=== PATIENT | female | born 1940 | race Two or more races ===

== ENCOUNTER 2023-08-12 16:14 | Observation (INO) | payer MEDICARE, SELFPAY ==
--- NOTE | 2023-08-12 | ECG_ITS ---
Test Reason : DIZZINESS Blood Pressure : / mmHG Vent. Rate : 069 BPM Atrial Rate : 069 BPM P-R Int : 184 ms QRS Dur : 086 ms QT Int : 392 ms P-R-T Axes : 069 060 060 degrees QTc Int : 420 ms Normal sinus rhythm Normal ECG No previous ECGs available Referred By: Generic ED Physician Electronically Signed By:RAJ MARTIN
--- NOTE | ~2023-08-12 | CT_ITS ---
EXAMINATION: CT ANGIOGRAM HEAD CT ANGIOGRAM NECK CLINICAL INFORMATION: Reason for Exam dizziness COMPARISON: None. TECHNIQUE: Test bolus sequences followed by intravenous administration 85 mL of Omnipaque 300. Helical imaging was performed in the axial plane from the aortic arch to the skull vertex. Delayed postcontrast imaging of the head was also performed. The data was processed at the mri technologist's workstation for generation of MIP sequences. Angled MIPs and volume rendered reformatted images were also generated at an offline 3D workstation. Stenoses are assessed in accordance with Og et al. Quantification of Carotid Stenosis on CT Angiography. AJR 2006. 27(1):13-19. This CT examination was performed using dose optimization techniques as appropriate, variously including the following: *Automated exposure control *Adjustment of mA and/or kV according to patient size (this includes techniques or standardized protocols for targeted exams where dose is matched to indication/reason for exam; i.e. extremities or head) *Use of iterative reconstruction technique DLP: 1899 mGy-cm FINDINGS: CT HEAD: Moderate generalized parenchymal volume loss. No territorial loss of lozano-white differentiation. No acute intracranial hemorrhage or extra-axial fluid collection. No mass lesion, significant mass effect, or herniation pattern. No pathologic intra-axial enhancement or regional oligemia. Lens replacements. Paranasal sinuses and mastoid air cells are well aerated. Osseous structures are intact. Advanced TMJ osteoarthrosis bilaterally. CTA HEAD: No hemodynamically significant stenosis or occlusion in the anterior or posterior circulation. Patchy calcific plaque along the carotid siphons without associated stenosis. There is asymmetric ectasia of the left cavernous ICA. No aneurysms and no high flow vascular malformations. Timing of the contrast bolus allows assessment of the major dural venous sinuses, which all opacify normally CTA NECK: Two vessel branching pattern of the arch with left common carotid artery arising from the brachiocephalic trunk. Moderate partially calcified atherosclerotic plaque of the aortic arch and great vessel origins. Origins of the great vessels are widely patent. The common carotid arteries are widely patent. Mild atherosclerosis of the bilateral carotid bifurcations without associated stenosis. Widely patent internal carotid arteries. The right vertebral artery is dominant. The vertebral artery ostia are widely patent. Both vertebral arteries are widely patent throughout their extracranial cervical course. CT NECK: Patient is edentulous with dentures in place. Segmental fatty infiltration of the left greater than right parotid glands. 2.1 cm lipoma within the posterior left submandibular gland or interposed between the submandibular gland and sternocleidomastoid muscle.. Bilateral calcified palatine tonsilloliths with symmetric enlargement of the palatine tonsils, presumably reactive. Prominent soft tissue along the base of tongue effacing the vallecula may reflect lingual tonsillar hypertrophy though can be correlated with direct inspection to exclude underlying process. Asymmetric effacement of the right piriform sinus. Mosaic attenuation within the bilateral lungs, presumably areas of air trapping. Biapical pleural parenchymal scarring with some areas which appear more masslike with spiculated margins, for example in the left upper lobe measuring measuring 1.3 cm internal cystic change versus bronchiolectasis and adjacent architectural distortion. Diffuse osseous demineralization. CT/CT angio head neck IMPRESSION: 1. No acute intracranial findings. 2. No acute arterial occlusion or hemodynamically significant stenosis within the head or neck. 3. Prominent soft tissue along the base of tongue effacing the vallecula may reflect lingual tonsillar hypertrophy though can be correlated with direct inspection to exclude underlying process. Asymmetric effacement of the right piriform sinus and likewise be correlated with direct inspection to exclude underlying lesion. 4. Biapical pleural parenchymal scarring with some areas which appear more masslike with spiculated margins, for example in the left upper lobe measuring measuring 1.3 cm internal cystic change versus bronchiolectasis and adjacent architectural distortion. Recommend correlation with any prior outside hospital imaging if available. Pulmonary consultation advised. According to the UPDATED 2017 Fleischner Society recommendations, the advised followup imaging for a single solid nodule measuring 9 mm or greater is: Consider CT, PET/CT, or tissue sampling at 3 months. This was discussed with TYE Delacruz on 08/13/23 at 12:07 am.
--- NOTE | ~2023-08-12 | MR_ITS ---
EXAMINATION: MR BRAIN WITHOUT CONTRAST CLINICAL INFORMATION: Hypertensive urgency COMPARISON: None TECHNIQUE: Multiplanar multisequence MR imaging of the brain was obtained without intravenous contrast. FINDINGS: There is no acute infarct on diffusion-weighted imaging. There is no intracranial hemorrhage on iron-sensitive imaging. No extra-axial collection or mass effect/herniation. Patchy periventricular and deep white matter T2 FLAIR hyperintensities consistent with moderate underlying microangiopathy. No hydrocephalus. Mild to moderate generalized cerebral volume loss with commensurate sulcal and ventricular prominence. The major flow voids at the skull base are preserved. The midline structures are normal. The cerebellar tonsils are normally positioned. The craniocervical junction is normal. Marrow signal is within normal limits. The visualized soft tissues are without significant abnormality. No signal abnormality within the paranasal sinuses or within the mastoid air cells. MR/MR head/brain wo con IMPRESSION: No acute intracranial abnormality
[2023-08-12 17:20] VITALS: BP 170/57; PULSE 65; RESP 17; TEMP 36.6; O2SAT 95; BMI 28.2
[2023-08-12 17:52] LABS: MANUAL DIFF FLAG NO
[2023-08-12 18:14] LABS: Alanine Aminotransferase 13 U/L (0-31); Albumin Level 3.8 g/dL (3.5-5.0); Alkaline Phosphatase 56 U/L (39-117); Anion Gap 9 (12-20); Aspartate Amino Transferase 19 U/L (5-31); Bilirubin Direct 0.2 mg/dL (0.0-0.5); Bilirubin Total 0.5 mg/dL (0.0-1.0); Blood Urea Nitrogen 23 mg/dL (9-16); Calcium 9.2 mg/dL (8.4-10.2); Carbon Dioxide 31 mmol/L (22-29); Chloride 100 mmol/L (96-108); Creatinine Clr Calc Pharmacy 29.8; Estimated Glomerular Filt Rate 46; Glucose Random 86 mg/dL (60-115); Lipase 46 U/L (8-78); Potassium 4.4 mmol/L (3.3-5.1); Sodium 136 mmol/L (135-145); Total Protein 7.9 g/dL (6.5-8.0)
[2023-08-12 18:19] LABS: Basophils Absolute Auto 0.1 X10*3/uL (0.0-0.2); Basophils Percent Auto 1.2 % (0-2); Eosinophils Absolute Auto 0.2 X10*3/uL (0.0-0.4); Eosinophils Percent Auto 3.2 % (0-4); Hematocrit 31.7 % (37.0-47.0); Hemoglobin 10.6 g/dl (12.0-16.0); Imm Gran Abs Auto 0.01 X10*3/uL (0.00-0.03); Imm Gran Pct Auto 0.1 % (0.0-0.4); Lymphocytes Absolute Auto 3.4 X10*3/uL (1.2-4.9); Lymphocytes Percent Auto 49.4 % (20-40); Mean Corpuscular HGB Conc 33.4 g/dl (31.0-35.0); Mean Corpuscular Hemoglobin 30.5 pg (27.0-33.0); Mean Corpuscular Volume 91.1 fL (80.0-98.0); Mean Platelet Volume 10.8 fL (9.4-12.3); Monocytes Absolute Auto 0.6 X10*3/uL (0.1-1.2); Neutrophils Absolute Auto 2.5 x10*3/uL (2.0-8.3); Neutrophils Percent Auto 37.1 % (45-73); Platelet Count 219 X10*3/uL (160-400); Red Blood Count 3.48 X10*6/uL (4.20-5.50); Red Cell Distribution Width 13.8 % (11.0-16.0); White Blood Count 6.8 X10*3/uL (4.8-10.8)
--- NOTE | 2023-08-12 20:00 | ED_ITS ---
HPI - Dizziness General Chief Complaint: Dizziness Stated Complaint: vomiting dizziness Time Seen by Provider: 08/12/23 21:34 Source: family Mode of arrival: ambulatory Limitations: language barrier History of Present Illness ED Provider: Jerardo DE LA TORRE Narrative: 83-year-old female with history of hypertension, hyperlipidemia, chronic kidney disease, hypothyroidism presents with dizziness x2 and half days. Per patient's family, the patient just arrived from [place], she is here visiting family on vacation. Since she arrived off the plane, she began to complain of dizziness and gait instability. Associated nausea vomiting at times. Patient also complains of a posterior headache. Denies chest pain, shortness of breath, palpitations, visual changes, weakness of the extremities, and no prior vertigo. Related Data Allergies Allergy/AdvReac Type Severity Reaction Status Date / Time No Known Allergies Allergy Verified 08/12/23 17:24 Review of Systems 2 Review of Systems: Yes all other systems are reviewed and are negative Constitutional: Constitutional: Denies fatigue, Denies fever(s), Denies frequent falls and Reports headache(s) Eyes: Eyes: Denies change in vision ENT: Reports dizziness and Reports headache(s) Cardiovascular: Cardiovascular: Denies chest pain, Denies syncope, Denies palpitations and Denies dyspnea Respiratory: Respiratory: Denies dyspnea Gastrointestinal: Gastrointestinal: Denies abdominal pain, Reports nausea and Reports vomiting Musculoskeletal: Musculoskeletal: Reports abnormal gait Neurologic: Reports abnormal gait, Reports dizziness, Denies syncope, Denies frequent falls and Reports headache(s) Endocrine: Endocrine: Denies fatigue and Denies palpitations PMF Past Medical History Attestation statement: The following information was validated with the patient. Social History Social History Advance Directives: No Advance Directives Information Provided: No Do you have a plan to hurt others: No Plan Physical Exam 2 Vital Signs: Vital Signs: Last Vital Signs Temp 97.7 F 08/13/23 00:45 Pulse 65 08/13/23 00:45 Resp 16 08/13/23 00:45 BP 144/80 H 08/13/23 00:45 Pulse Ox 93 08/13/23 00:45 O2 Del Method Room Air 08/13/23 00:45 BMI result Body Mass Index 28.2 Const: Other: alert well in appearance General: cooperative Eyes: Pupils: Equal, round and reactive pupils present EOM: EOMs intact bilaterally and No Nystagmus present Resp: Other: Nonlabored respiration Cardio: Other: Normal peripheral perfusion Skin: Other: No rash Neuro: Other: Patient is alert and oriented x3, no speech deficits, she has not aphasic, cranial nerves intact, Romberg negative, subtly unsteady on her feet with position changes while standing, no primary unilateral ataxia Cranial nerves: Yes Equal, round and reactive pupils present and No Nystagmus present Extrem: Other: Strength 5/5 bilateral upper and lower extremities Psych: Other: Calm cooperative Course Course Course Narrative: This is an RME: Additional HPI, ROS, PE not included below will be deferred to primary provider. RME assessment and note performed by: Ludmila Norton PA-C This is a [id number]-female who presents emergency department with complaints of vomiting, dizziness. Patient is unable to keep any food or fluids down. She is originally from [facility]. Plan: Labs, EKG, further ER evaluation needed Reevaluation(s) Reevaluation #1: Systolic BP 1 70s after 20 mg of labetalol, we will give an additional dose now Reevaluation #2: Pressure is 160 systolic after the 2nd 20 mg of IV labetalol, I do not want to bring her pressure down to rapidly, unclear what her baseline is Medications Administered Discontinued Medications Generic Name Dose Route Start Last Admin Trade Name Freq PRN Reason Stop Dose Admin Iohexol 85 ml 08/12/23 22:49 08/12/23 22:50 Iohexol 350 Mg/Ml 100 Ml Infus..Btl IV 08/12/23 22:50 85 ml ONCE ONE Administration Labetalol HCl 20 mg 08/12/23 22:12 08/12/23 22:20 Labetalol Hcl 100 Mg/20 Ml Vial IVPUSH 08/12/23 22:13 20 mg ONCE ONE Administration Labetalol HCl 20 mg 08/12/23 23:19 08/12/23 23:31 Labetalol Hcl 100 Mg/20 Ml Vial IVPUSH 08/12/23 23:20 20 mg ONCE ONE Administration Medical Decision Making Medical Decision Making [facility] Narrative: 83-year-old female with history of hypertension, hyperlipidemia, chronic kidney disease, hypothyroidism presents with dizziness x2 and half days. Per patient's family, the patient just arrived from [place], she is here visiting family on vacation. Since she arrived off the plane, she began to complain of dizziness and gait instability. Associated nausea vomiting at times. Patient also complains of a posterior headache. Denies chest pain, shortness of breath, palpitations, visual changes, weakness of the extremities, and no prior vertigo. Problem: Hypertension, age, chronic kidney disease, hyperlipidemia History: Per patient with the aid of her family, I have considered the following differential diagnoses: Hypertensive urgency, hypertensive emergency, posterior circulation CVA, intracranial hemorrhage, vertigo Plan: Patient here with poorly-controlled hypertension, the family states that she has been adherent with her medications. We will be initiating IV labetalol. Given the nature of her symptoms, I am concerned for posterior circulation CVA. Her current symptoms are minimal, she has also had symptoms for over 2 days, we will be placing orders for subacute stroke. Screening labs and EKG including cardiac enzymes were obtained from triage. Thought about vertigo, however her symptoms are not vertiginous in nature, no nystagmus noted on exam. I have independently reviewed the following tests: Labs: No leukocytosis, chronic stable anemia, no electrolyte abnormality, troponin 5 and 4.7 respectively, EKG: Normal sinus rhythm, rate of 69, no ischemic changes no ectopy CT non-con brain: Per [facility], no active bleeding CT angio brain and angio neck: EXAMINATION: CT ANGIOGRAM HEAD CT ANGIOGRAM NECK CLINICAL INFORMATION: Reason for Exam dizziness COMPARISON: None. TECHNIQUE: Test bolus sequences followed by intravenous administration 85 mL of Omnipaque 300. Helical imaging was performed in the axial plane from the aortic arch to the skull vertex. Delayed postcontrast imaging of the head was also performed. The data was processed at the health information technologist's workstation for generation of MIP sequences. Angled MIPs and volume rendered reformatted images were also generated at an offline 3D workstation. Stenoses are assessed in accordance with Og et al. Quantification of Carotid Stenosis on CT Angiography. AJR 2006. 27(1):13-19. This CT examination was performed using dose optimization techniques as appropriate, variously including the following: *Automated exposure control *Adjustment of mA and/or kV according to patient size (this includes techniques or standardized protocols for targeted exams where dose is matched to indication/reason for exam; i.e. extremities or head) *Use of iterative reconstruction technique DLP: 1899 mGy-cm FINDINGS: CT HEAD: Moderate generalized parenchymal volume loss. No territorial loss of lozano-white differentiation. No acute intracranial hemorrhage or extra-axial fluid collection. No mass lesion, significant mass effect, or herniation pattern. No pathologic intra-axial enhancement or regional oligemia. Lens replacements. Paranasal sinuses and mastoid air cells are well aerated. Osseous structures are intact. Advanced TMJ osteoarthrosis bilaterally. CTA HEAD: No hemodynamically significant stenosis or occlusion in the anterior or posterior circulation. Patchy calcific plaque along the carotid siphons without associated stenosis. There is asymmetric ectasia of the left cavernous ICA. No aneurysms and no high flow vascular malformations. Timing of the contrast bolus allows assessment of the major dural venous sinuses, which all opacify normally CTA NECK: Two vessel branching pattern of the arch with left common carotid artery arising from the brachiocephalic trunk. Moderate partially calcified atherosclerotic plaque of the aortic arch and great vessel origins. Origins of the great vessels are widely patent. The common carotid arteries are widely patent. Mild atherosclerosis of the bilateral carotid bifurcations without associated stenosis. Widely patent internal carotid arteries. The right vertebral artery is dominant. The vertebral artery ostia are widely patent. Both vertebral arteries are widely patent throughout their extracranial cervical course. CT NECK: Patient is edentulous with dentures in place. Segmental fatty infiltration of the left greater than right parotid glands. 2.1 cm lipoma within the posterior left submandibular gland or interposed between the submandibular gland and sternocleidomastoid muscle.. Bilateral calcified palatine tonsilloliths with symmetric enlargement of the palatine tonsils, presumably reactive. Prominent soft tissue along the base of tongue effacing the vallecula may reflect lingual tonsillar hypertrophy though can be correlated with direct inspection to exclude underlying process. Asymmetric effacement of the right piriform sinus. Mosaic attenuation within the bilateral lungs, presumably areas of air trapping. Biapical pleural parenchymal scarring with some areas which appear more masslike with spiculated margins, for example in the left upper lobe measuring measuring 1.3 cm internal cystic change versus bronchiolectasis and adjacent architectural distortion. Diffuse osseous demineralization. CT/CT angio head neck IMPRESSION: 1. No acute intracranial findings. 2. No acute arterial occlusion or hemodynamically significant stenosis within the head or neck. 3. Prominent soft tissue along the base of tongue effacing the vallecula may reflect lingual tonsillar hypertrophy though can be correlated with direct inspection to exclude underlying process. Asymmetric effacement of the right piriform sinus and likewise be correlated with direct inspection to exclude underlying lesion. 4. Biapical pleural parenchymal scarring with some areas which appear more masslike with spiculated margins, for example in the left upper lobe measuring measuring 1.3 cm internal cystic change versus bronchiolectasis and adjacent architectural distortion. Recommend correlation with any prior outside hospital imaging if available. Pulmonary consultation advised. According to the UPDATED 2017 Fleischner Society recommendations, the advised followup imaging for a single solid nodule measuring 9 mm or greater is: Consider CT, PET/CT, or tissue sampling at 3 months. This was discussed with TYE Delacruz on 08/13/23 at 12:07 am. Differential Diagnosis Differential Diagnoses: The differential diagnosis associated with the presentation includes Hypertensive urgency, hypertensive emergency, posterior circulation CVA, intracranial hemorrhage, vertigo Lab Data 08/12/23 17:47 08/12/23 17:47 Labs: Lab Results 08/12/23 08/12/23 08/12/23 Range/Units 17:47 21:22 22:16 WBC 6.8 (4.8-10.8) X10*3/uL RBC 3.48 L (4.20-5.50) X10*6/uL Hgb 10.6 L (12.0-16.0) g/dl Hct 31.7 L (37.0-47.0) % MCV 91.1 (80.0-98.0) fL MCH 30.5 (27.0-33.0) pg MCHC 33.4 (31.0-35.0) g/dl RDW 13.8 (11.0-16.0) % Plt Count 219 (160-400) X10*3/uL MPV 10.8 (9.4-12.3) fL Immature Gran % (Auto) 0.1 (0.0-0.4) % Neut % (Auto) 37.1 L (45-73) % Lymph % (Auto) 49.4 H (20-40) % Falls % (Auto) 9.0 (2-11) % Eos % (Auto) 3.2 (0-4) % Baso % (Auto) 1.2 (0-2) % Lymph # (Auto) 3.4 (1.2-4.9) X10*3/uL Falls # (Auto) 0.6 (0.1-1.2) X10*3/uL Eos # (Auto) 0.2 (0.0-0.4) X10*3/uL Baso # (Auto) 0.1 (0.0-0.2) X10*3/uL Abs Immat Gran (auto) 0.01 (0.00-0.03) X10*3/uL Absolute Neuts (auto) 2.5 (2.0-8.3) x10*3/uL Absolute Nucleated RBC 0.000 (0.0-0.012) X10*3/uL Nucleated RBC % (auto) 0.0 (0.0-0.2) /100WBC PT 12.3 (11.1-13.3) SEC INR 1.0 (0.9-1.1) Sodium 136 (135-145) mmol/L Potassium 4.4 (3.3-5.1) mmol/L Chloride 100 (96-108) mmol/L Carbon Dioxide 31 H (22-29) mmol/L Anion Gap 9 L (12-20) BUN 23 H (9-16) mg/dL Creatinine 1.13 (0.5-1.4) mg/dL Estim Creat Clear Calc 29.8 Estimated GFR 46 Random Glucose 86 (60-115) mg/dL Calcium 9.2 (8.4-10.2) mg/dL Total Bilirubin 0.5 (0.0-1.0) mg/dL Direct Bilirubin 0.2 (0.0-0.5) mg/dL AST 19 (5-31) U/L ALT 13 (0-31) U/L Alkaline Phosphatase 56 (39-117) U/L Troponin I High Sens 5.0 4.7 (<3.5-17.0) ng/L Total Protein 7.9 (6.5-8.0) g/dL Albumin 3.8 (3.5-5.0) g/dL Lipase 46 (8-78) U/L Blood Type Antibody Screen 08/12/23 Range/Units 22:28 WBC (4.8-10.8) X10*3/uL RBC (4.20-5.50) X10*6/uL Hgb (12.0-16.0) g/dl Hct (37.0-47.0) % MCV (80.0-98.0) fL MCH (27.0-33.0) pg MCHC (31.0-35.0) g/dl RDW (11.0-16.0) % Plt Count (160-400) X10*3/uL MPV (9.4-12.3) fL Immature Gran % (Auto) (0.0-0.4) % Neut % (Auto) (45-73) % Lymph % (Auto) (20-40) % Falls % (Auto) (2-11) % Eos % (Auto) (0-4) % Baso % (Auto) (0-2) % Lymph # (Auto) (1.2-4.9) X10*3/uL Falls # (Auto) (0.1-1.2) X10*3/uL Eos # (Auto) (0.0-0.4) X10*3/uL Baso # (Auto) (0.0-0.2) X10*3/uL Abs Immat Gran (auto) (0.00-0.03) X10*3/uL Absolute Neuts (auto) (2.0-8.3) x10*3/uL Absolute Nucleated RBC (0.0-0.012) X10*3/uL Nucleated RBC % (auto) (0.0-0.2) /100WBC PT (11.1-13.3) SEC INR (0.9-1.1) Sodium (135-145) mmol/L Potassium (3.3-5.1) mmol/L Chloride (96-108) mmol/L Carbon Dioxide (22-29) mmol/L Anion Gap (12-20) BUN (9-16) mg/dL Creatinine (0.5-1.4) mg/dL Estim Creat Clear Calc Estimated GFR Random Glucose (60-115) mg/dL Calcium (8.4-10.2) mg/dL Total Bilirubin (0.0-1.0) mg/dL Direct Bilirubin (0.0-0.5) mg/dL AST (5-31) U/L ALT (0-31) U/L Alkaline Phosphatase (39-117) U/L Troponin I High Sens (<3.5-17.0) ng/L Total Protein (6.5-8.0) g/dL Albumin (3.5-5.0) g/dL Lipase (8-78) U/L Blood Type A Negative Antibody Screen NEGATIVE Discharge Plan Discharge Print Language: Cameroonian
[2023-08-12 21:26] VITALS: BP 209/101; PULSE 69; RESP 16; TEMP 36.6; O2SAT 96
[2023-08-12 21:55] LABS: Troponin-I High Sensitivity 4.7 ng/L (<3.5-17.0)
[2023-08-12 22:06] VITALS: BP 208/127; PULSE 72; RESP 17; O2SAT 95
[2023-08-12 22:20] VITALS: BP 207/91
[2023-08-12] MEDS: Labetalol HCL 100 MG/20 ML VIAL 20 MG IVPUSH ×2 (22:20→23:31)
[2023-08-12 22:25] LABS: Prothrombin Time 12.3 SEC (11.1-13.3)
[2023-08-12] MEDS: iohexoL 350 MG/ML 100 ML INFUS..BTL 85 ML IV (22:50)
[2023-08-12 23:09] VITALS: BP 185/74; PULSE 70; RESP 16; O2SAT 93
[2023-08-13] VITALS (14 sets, daily range): BP systolic 118–200; BP diastolic 48–90; PULSE 64–86; RESP 14–19; TEMP 36.3–37; O2SAT 90–94
--- NOTE | 2023-08-13 06:32 | P.HPHOSP_ITS ---
History of Present Illness Date of Service: 08/13/23 Attending physician on admission: Stan Selby Chief Complaint: Dizziness Haven Chaidez is 83 years old woman with past medical history significant for essential hypertension, hyperlipidemia, depression, CKD stage 3A, COPD, chronic anemia on erythropoietin injections and hypothyroidism presents to the emergency department complaining of 2 day history of dizziness (vertigo-like) associated with multiple episodes of nonbloody bilious vomiting and loss of balance. Dizziness occurs with position changes. She denied any associated headache, acute visual disturbances such as double vision or blurry vision, focal weakness or speech difficulty. Loss of consciousness or seizure activity has not been reported. Patient denied any acute cardiopulmonary symptoms such as chest pain, shortness on breath, palpitations or dizziness. She also denies abdominal pain, diarrhea, fever, chills or cough. She did not report any acute urinary symptoms. Patient is visiting her family from [facility]. She denied alcohol abuse. She is a former tobacco smoker -smoked for many years. Illicit drug use was not reported. She does not have history of strokes, coronary artery disease, diabetes mellitus or heart failure. In the ED, she was found have back elevated blood pressure (max 208/127). There is no tachycardia, hypoxia or fever. Blood workup is remarkable for mild degree of anemia (Hbg 10.6) which is around her baseline. WBC count, platelets INR and normal. CO2 was noted to be elevated, 31. Creatinine is 1.13 (her baseline is 1.4, according to her paperwork). LFTs, albumin and lipase are normal. Troponin is flat x2. His CTA showed no acute intracranial abnormalities, no acute arterial occlusion or hemodynamically significant stenosis within the head or neck, possible lingual tonsillar hypertrophy and biapical pleural-parenchymal scarring with some areas which appear more masslike with spiculated margins. ECG showed normal sinus rhythm with a heart rate of 69 beats per minute without ischemic changes. ED tx: Labetalol 20 mg IV X2, IV contrast. Review of Systems 2 Review of Systems: All 12 systems were reviewed and normal except as noted in HPI. [facility] Medical History (Updated 08/13/23 @ 07:41 by Stan Selby MD) Vitamin B12 deficiency Chronic anemia CKD (chronic kidney disease), stage III GERD (gastroesophageal reflux disease) COPD (chronic obstructive pulmonary disease) Essential hypertension Hyperlipidemia Social History Smoked in Last 30 Days: No Use of substances other than those prescribed or required for medical reasons: No Advance Directives: No Advance Directives Information Provided: No Do you have a plan to hurt others: No Plan Meds Allergies Allergy/AdvReac Type Severity Reaction Status Date / Time No Known Allergies Allergy Verified 08/12/23 17:24 Active Medications: Current Medications Meclizine HCl (Meclizine Hcl 12.5 Mg Tablet) 12.5 mg PO TID [facility] Sodium Chloride (0.9 % Sodium Chloride Flush 3 Ml Syringe) 3 ml IVFLUSH QSHIFT [facility] Home Medications: 1. Levothyroxine 25 mcg PO daily 2. Lansoprazole 50 mg PO daily 3. Erythropoietin 2000 units inj. every 8 days (last dose was 3 weeks ago) 4. Atorvastatin 10 mg PO daily 5. Escitalopram 10 mg PO daily 6. Aspirin 100 mg PO daily 7. Maalox PO as needed 8. Vitamin B12 injections every month 9. Carvedilol 25 mg PO bid. 10. Nifedipine 30 mg POdaily 11. Losartan/HCTZ 50/12.5 mg PO daily Physical Exam 2 Vital Signs and Narrative: Vital Signs: Last Vital Signs Temp 98.4 F 08/13/23 05:39 Pulse 74 08/13/23 05:39 Resp 14 08/13/23 05:39 BP 118/48 L 08/13/23 05:39 Pulse Ox 92 08/13/23 05:39 O2 Del Method Room Air 08/13/23 05:39 BMI result Body Mass Index 28.2 Constitutional - Awake and Alert, No apparent distress. Pleasant. Cooperative. HEENT - Atraumatic head. Normocephalic. PERRLA, EOMI. Cardiovascular - S1S2, RRR, No edema Respiratory - Normal lung expansion, Normal respiratory effort, No respiratory distress, CTA bilaterally Gastrointestinal - NT / ND; +BS; No rebound or guarding Extremities - N calf tenderness bilaterally, no swelling Musculoskeletal - Normal inspection, normal ROM Skin - Warm/Dry Neurological - Alert & oriented x3, CN III-XII in tact, 5/5 strength BUE and BLE. Nystagmus absent Psychological - Appropriate affect Results Labs 08/12/23 17:47 08/12/23 17:47 Labs: Laboratory Results - last 24 hr 08/12/23 08/12/23 08/12/23 17:47 21:22 22:16 MCV 91.1 MCH 30.5 MCHC 33.4 RDW 13.8 Plt Count 219 MPV 10.8 Immature Gran % (Auto) 0.1 Neut % (Auto) 37.1 L Lymph % (Auto) 49.4 H [place] % (Auto) 9.0 Eos % (Auto) 3.2 Baso % (Auto) 1.2 Lymph # (Auto) 3.4 [place] # (Auto) 0.6 Eos # (Auto) 0.2 Baso # (Auto) 0.1 Abs Immat Gran (auto) 0.01 Absolute Neuts (auto) 2.5 Absolute Nucleated RBC 0.000 Nucleated RBC % (auto) 0.0 PT 12.3 INR 1.0 Anion Gap 9 L Estim Creat Clear Calc 29.8 Estimated GFR 46 Random Glucose 86 Calcium 9.2 Total Bilirubin 0.5 Direct Bilirubin 0.2 AST 19 ALT 13 Alkaline Phosphatase 56 Troponin I High Sens 5.0 4.7 Total Protein 7.9 Albumin 3.8 Lipase 46 Blood Type Antibody Screen 08/12/23 22:28 MCV MCH MCHC RDW Plt Count MPV Immature Gran % (Auto) Neut % (Auto) Lymph % (Auto) [place] % (Auto) Eos % (Auto) Baso % (Auto) Lymph # (Auto) [place] # (Auto) Eos # (Auto) Baso # (Auto) Abs Immat Gran (auto) Absolute Neuts (auto) Absolute Nucleated RBC Nucleated RBC % (auto) PT INR Anion Gap Estim Creat Clear Calc Estimated GFR Random Glucose Calcium Total Bilirubin Direct Bilirubin AST ALT Alkaline Phosphatase Troponin I High Sens Total Protein Albumin Lipase Blood Type A Negative Antibody Screen NEGATIVE ECG Attestation: I personally reviewed and interpreted this ECG as follows: (NSR, HR 69 bpm, no acute ischemic changes.) ECG interpretation date: 08/12/23 Imaging Radiologist's Impressions: Impressions Head/Neck CTA 08/12/23 23:21 IMPRESSION: 1. No acute intracranial findings. 2. No acute arterial occlusion or hemodynamically significant stenosis within the head or neck. 3. Prominent soft tissue along the base of tongue effacing the vallecula may reflect lingual tonsillar hypertrophy though can be correlated with direct inspection to exclude underlying process. Asymmetric effacement of the right piriform sinus and likewise be correlated with direct inspection to exclude underlying lesion. 4. Biapical pleural parenchymal scarring with some areas which appear more masslike with spiculated margins, for example in the left upper lobe measuring measuring 1.3 cm internal cystic change versus bronchiolectasis and adjacent architectural distortion. Recommend correlation with any prior outside hospital imaging if available. Pulmonary consultation advised. According to the UPDATED 2017 Fleischner Society recommendations, the advised followup imaging for a single solid nodule measuring 9 mm or greater is: Consider CT, PET/CT, or tissue sampling at 3 months. This was discussed with TYE Delacruz on 08/13/23 at 12:07 am. Assessment and Plan (1) Hypertensive urgency: Status: Acute (2) Dizziness: Status: Acute (3) Hyperlipidemia: Qualifiers: Hyperlipidemia type: unspecified Qualified Code(s): E78.5 - Hyperlipidemia, unspecified Status: Acute (4) Abnormal CT of the head: Status: Acute (5) Gait instability: Status: Acute Plan Haven Chaidez is 83 y/o woman admitted with: * Hypertensive urgency. Labetalol 20 mg IV X2 given in ED. Observation. Close BP monitoring. Careful reduction in blood pressure to avoid ischemic compliations. Hold home meds (she takes carvedilol, losartan/HCTZ and nifedipine). * Dizziness, vertigo-like with position changes associated with nausea and vomiting . Likely BPPV vs findings due to intracranial pressure. Start therapy with Antivert. Brain MRI. * Elevated CO2, possible contraction alkalosis due to nausea and vomiting. Check venous pH and pCO2. * Biapical pleural parenchymal scarring (masslike), incidental findings on head and neck CTA. Patient would need follow as an outpatient. * Hyperlipidemia. Continue atorvastatin * CKD, stage 3A. Stop hydrochlorothiazide (pt takes a combination losartan and hydrochlorothiazide). Continue to monitor renal function. Avoid nephrotoxic agents. * Hypothyroidism. Continue levothyroxine. * GERD. Continue PPI. * Depression. Continue citalopram. * Chronic anemia. Pt receives erythropoietin (2,000 units) injections every 8 days (last dose was 3 weeks ago). Niece is requesting patient gets a dose of this today, however, patient's Hgb is 10.6. * Vitamin B12 deficiency. On vitamin B12 injections monthly. * COPD, no home oxygen. Asymptomatic. Quality Stroke Does the patient have a stroke diagnosis?: No VTE Prior VTE?: No VTE Risk Level:: Medical - moderate - high VTE Device Contraindication: N/A - Device Ordered VTE Drug Contraindication: N/A - Med Ordered
[2023-08-13] MEDS: 0.9 % Sodium Chloride 500 ML IV (06:58)
[2023-08-13] MEDS: 0.9 % Sodium Chloride 1,000 ML 75 ML IVCONT (08:17)
--- NOTE | 2023-08-13 09:14 | PC.NURSE ---
patient resting quietly in bed, family at bedside. patient alert and oriented x3. patient ambulated to bathroom this morning. medicated per APR, patient has NS running 75 ml/hr. respirations equal and unlabored, VSS
--- NOTE | 2023-08-13 09:40 | PHA.MEDREC ---
Pharmacy Consult ? Medication Reconciliation Pharmacy has completed the medication reconciliation. Patient gets meds filled in [place]. Went to talk to her with an dope edger and patient has family at bedside and they had a list from her pharmacist. She is on an erythropoietin injection once every 8 days. According to family she has not gotten a dose since 07/14/2023 due to it staying in [place] when she came here to visit family but they would like to get it continued for her up here. The patient is also on a Vitamin B-12 once a month, family said she gets it injected into her arm and she got her last injection of that on 08/06/2023. Patient also taking Aspirin 100mg on Tuesdays, and Saturdays; we do not carry that dose here in the hospital, we let patient family know and they said its ok to do low dose for now.
[2023-08-13 09:47] LABS: VBG Base Excess 6.1 mmol/L; VBG HCO3 30 mmol/L (22-26); VBG pCO2 40 mmHg; VBG pH 7.47 (7.32-7.43); VBG pO2 147 mmHg
[2023-08-13 09:51] LABS: Venous Blood Gas Refer to POC result
--- NOTE | 2023-08-13 10:36 | HO.PM.IMPN ---
Subjective Subjective Date of Service: 08/13/23 Interval History: f/u on dizziness, accelerated HTN BP is better, and dizziness is gone she is visiting family from [place] Physical Exam Vital Signs: Vital Signs: Last Vital Signs Temp 98.6 F 08/13/23 07:16 Pulse 64 08/13/23 10:03 Resp 16 08/13/23 07:16 BP 151/61 H 08/13/23 10:03 Pulse Ox 94 08/13/23 10:03 O2 Del Method Room Air 08/13/23 07:16 BMI result Body Mass Index 28.2 General: AO X 3, no acute distress Resp: CTA bilateral CVS: S1,S2,RRR GI: +BS, NT, no distention Skin: No rash Neuro: motor grossly intact Psych: appropriate affect Objective Data Active Medications Aspirin (Aspirin Enteric Coated 81 Mg Tablet.) 81 mg PO TuThSa@0900 [facility] Atorvastatin Calcium (Atorvastatin Calcium 10 Mg Tablet) 10 mg PO BEDTIME [facility] Carvedilol (Carvedilol 12.5 Mg Tablet) 12.5 mg PO BID [facility]; Protocol Cyanocobalamin (Cyanocobalamin (Vitamin B-12) 1,000 Mcg/Ml Vial) 1,000 mcg IM Q30D [facility] Escitalopram Oxalate (Escitalopram Oxalate 10 Mg Tablet) 10 mg PO DAILY [facility] Hydrochlorothiazide (Hydrochlorothiazide 12.5 Mg Tablet) 12.5 mg PO DAILY@0800 [facility] Sodium Chloride (Ns) 1,000 mls @ 75 mls/hr IVCONT .[id number] [facility] Last Admin: 08/13/23 08:17 Dose: 75 mls/hr Documented By: CORY Levothyroxine Sodium (Levothyroxine Sodium 25 Mcg Tablet) 25 mcg PO DAILY@0600 [facility] Losartan Potassium (Losartan Potassium 50 Mg Tablet) 50 mg PO DAILY@0800 [facility]; Protocol Meclizine HCl (Meclizine Hcl 12.5 Mg Tablet) 12.5 mg PO TID [facility] Nifedipine (Nifedipine Er 30 Mg Tab.Er.24) 30 mg PO BEDTIME [facility]; Protocol Omeprazole (Omeprazole 20 Mg Capsule.) 20 mg PO DAILY@0630 [facility] Sodium Chloride (0.9 % Sodium Chloride Flush 3 Ml Syringe) 3 ml IVFLUSH QSHIFT [facility] Last Admin: 08/13/23 08:18 Dose: Not Given Documented By: CORY Non-Admin Reason: IV Running Labs 08/12/23 17:47 08/12/23 17:47 Labs: Laboratory Results - last 24 hr 08/12/23 08/12/23 08/12/23 17:47 21:22 22:16 MCV 91.1 MCH 30.5 MCHC 33.4 RDW 13.8 Plt Count 219 MPV 10.8 Immature Gran % (Auto) 0.1 Neut % (Auto) 37.1 L Lymph % (Auto) 49.4 H [place] % (Auto) 9.0 Eos % (Auto) 3.2 Baso % (Auto) 1.2 Lymph # (Auto) 3.4 [place] # (Auto) 0.6 Eos # (Auto) 0.2 Baso # (Auto) 0.1 Abs Immat Gran (auto) 0.01 Absolute Neuts (auto) 2.5 Absolute Nucleated RBC 0.000 Nucleated RBC % (auto) 0.0 PT 12.3 INR 1.0 VBG pH VBG pCO2 VBG pO2 VBG HCO3 VBG O2 Saturation VBG Base Excess Anion Gap 9 L Estim Creat Clear Calc 29.8 Estimated GFR 46 Random Glucose 86 Calcium 9.2 Total Bilirubin 0.5 Direct Bilirubin 0.2 AST 19 ALT 13 Alkaline Phosphatase 56 Troponin I High Sens 5.0 4.7 Total Protein 7.9 Albumin 3.8 Lipase 46 Blood Type Antibody Screen 08/12/23 08/13/23 22:28 09:39 MCV MCH MCHC RDW Plt Count MPV Immature Gran % (Auto) Neut % (Auto) Lymph % (Auto) [place] % (Auto) Eos % (Auto) Baso % (Auto) Lymph # (Auto) [place] # (Auto) Eos # (Auto) Baso # (Auto) Abs Immat Gran (auto) Absolute Neuts (auto) Absolute Nucleated RBC Nucleated RBC % (auto) PT INR VBG pH 7.47 H VBG pCO2 40 VBG pO2 147 VBG HCO3 30 H VBG O2 Saturation 99.0 VBG Base Excess 6.1 Anion Gap Estim Creat Clear Calc Estimated GFR Random Glucose Calcium Total Bilirubin Direct Bilirubin AST ALT Alkaline Phosphatase Troponin I High Sens Total Protein Albumin Lipase Blood Type A Negative Antibody Screen NEGATIVE Assessment and Plan (1) Hyperlipidemia: Status: Acute (2) Dizziness: Status: Acute Plan Haven Chaidez is 83 y/o woman admitted with: Hypertensive urgency. Labetalol 20 mg IV X2 given in ED with improvement. restart home meds, change Coreg 25 at hs to 12.5 bid, continu Losartan/HCTZ, Nifedipine Dizziness, suspect positional vertigo, meclizine PRN, MRI, Neuro consult Elevated CO2, possible contraction alkalosis due to nausea and vomiting. Monitor Biapical pleural parenchymal scarring (masslike), incidental findings on head and neck CTA. Patient would need follow as an outpatient. Hyperlipidemia. Continue atorvastatin CKD, stage 3A. appear stable, Hypothyroidism. Continue levothyroxine. GERD. Continue PPI. Depression. Continue citalopram. Chronic anemia. Pt receives erythropoietin (2,000 units) injections every 8 days (last dose was 3 weeks ago). Niece is requesting patient gets a dose of this today, however, patient's Hgb is 10.6. Vitamin B12 deficiency. On vitamin B12 injections monthly. COPD, no home oxygen. Asymptomatic. DVT prophylasix heparin Quality Stroke Does the patient have a stroke diagnosis?: No VTE Prior VTE?: No VTE Risk Level:: Medical - moderate - high VTE Device Contraindication: N/A - Device Ordered VTE Drug Contraindication: N/A - Med Ordered
[2023-08-13] MEDS: Levothyroxine Sodium 25 MCG TABLET PO (10:54)
[2023-08-13] MEDS: Losartan Potassium 50 MG TABLET PO (10:55)
[2023-08-13] MEDS: Escitalopram Oxalate 10 MG TABLET PO (10:55)
--- NOTE | 2023-08-13 11:48 | PM.NEUROCN ---
History of Present Illness Data of Consult Service Date: 08/13/23 Primary Care Provider: Unknown Physician HPI Reason for consult: Dizziness 83 years old woman came to hospital with an episode of dizziness. She has been having such episodes for few months. She had sense of spinning with some nausea and unsteadiness. She was not febrile and did not have any headache confusion or any focal numbness or weakness or double vision. Now she was feeling better. Blood pressure in emergency room was high. Review of Systems Review of Systems: No recent cold or flu-like illness PMFSH Past Medical History Medical History Vitamin B12 deficiency Chronic anemia CKD (chronic kidney disease), stage III GERD (gastroesophageal reflux disease) COPD (chronic obstructive pulmonary disease) Essential hypertension Hyperlipidemia Social History Social History Smoked in Last 30 Days: No Use of substances other than those prescribed or required for medical reasons: No Advance Directives: No Advance Directives Information Provided: No Do you have a plan to hurt others: No Plan Meds Allergies Allergy/AdvReac Type Severity Reaction Status Date / Time No Known Allergies Allergy Verified 08/12/23 17:24 Active Medications: Current Medications Aspirin (Aspirin Enteric Coated 81 Mg Tablet.) 81 mg PO TuThSa@0900 [facility] Atorvastatin Calcium (Atorvastatin Calcium 10 Mg Tablet) 10 mg PO BEDTIME [facility] Carvedilol (Carvedilol 12.5 Mg Tablet) 12.5 mg PO BID [facility]; Protocol Cyanocobalamin (Cyanocobalamin (Vitamin B-12) 1,000 Mcg/Ml Vial) 1,000 mcg IM Q30D [facility] Escitalopram Oxalate (Escitalopram Oxalate 10 Mg Tablet) 10 mg PO DAILY [facility] Last Admin: 08/13/23 10:55 Dose: 10 mg Hydrochlorothiazide (Hydrochlorothiazide 12.5 Mg Tablet) 12.5 mg PO DAILY@0800 [facility] Sodium Chloride (Ns) 1,000 mls @ 75 mls/hr IVCONT .[id number] [facility] Last Admin: 08/13/23 08:17 Dose: 75 mls/hr Levothyroxine Sodium (Levothyroxine Sodium 25 Mcg Tablet) 25 mcg PO DAILY@0600 [facility] Last Admin: 08/13/23 10:54 Dose: 25 mcg Losartan Potassium (Losartan Potassium 50 Mg Tablet) 50 mg PO DAILY@0800 [facility]; Protocol Last Admin: 08/13/23 10:55 Dose: 50 mg Meclizine HCl (Meclizine Hcl 12.5 Mg Tablet) 12.5 mg PO TID [facility] Nifedipine (Nifedipine Er 30 Mg Tab.Er.24) 30 mg PO BEDTIME [facility]; Protocol Omeprazole (Omeprazole 20 Mg Capsule.Dr) 20 mg PO DAILY@06 [facility] Sodium Chloride (0.9 % Sodium Chloride Flush 3 Ml Syringe) 3 ml IVFLUSH QSHIFT [facility] Last Admin: 08/13/23 08:18 Dose: Not Given Home Medications ?Medication ?Instructions ?Recorded ?Confirmed ?Last Taken ?Type aspirin 81 mg capsule 100 mg PO TUTHSA 08/13/23 08/13/23 Unknown History atorvastatin 10 mg tablet 10 mg PO BEDTIME 08/13/23 08/13/23 08/11/23 20:00 History carvedilol 25 mg tablet 25 mg PO BEDTIME 08/13/23 08/13/23 08/11/23 20:00 History cyanocobalamin (vitamin B-12) 1,000 mcg IM QMONTH 08/13/23 08/13/23 08/06/23 History 1,000 mcg/mL injection solution epoetin gokul 2,000 unit/mL 2,000 unit subcut 3XW 08/13/23 08/13/23 07/14/23 History injection solution escitalopram oxalate 10 mg tablet 10 mg PO DAILY 08/13/23 08/13/23 08/12/23 06:00 History lansoprazole 15 mg capsule,delayed 15 mg PO BEDTIME 08/13/23 08/13/23 08/11/23 20:00 History release levothyroxine 25 mcg tablet 25 mcg PO DAILY@59908/13/23 08/13/23 08/12/23 06:00 History losartan 50 mg-hydrochlorothiazide 1 tab PO DAILY@79908/13/23 08/13/23 08/12/23 06:00 History 12.5 mg tablet nifedipine 30 mg tablet,extended 30 mg PO BEDTIME 08/13/23 08/13/23 08/11/23 20:00 History release 24 hr Physical Exam Vital Signs: Vital Signs: Last Vital Signs Temp 98.5 F 08/13/23 10:52 Pulse 74 08/13/23 10:52 Resp 16 08/13/23 10:52 BP 188/80 H 08/13/23 10:52 Pulse Ox 92 08/13/23 10:52 O2 Del Method Room Air 08/13/23 10:52 BMI result Body Mass Index 28.2 Neuro: Other: She is alert and awake with normal spontaneity of speech fluency comprehension and affect. Into was performed with the help of an motor vehicle parts interpreter. Face was symmetrical. Visual galvan are full. There was no focal weakness. Plantars were flexors. Results Labs 08/12/23 17:47 08/12/23 17:47 Labs: Short CBC 08/12/23 Range/Units 17:47 WBC 6.8 (4.8-10.8) X10*3/uL Hgb 10.6 L (12.0-16.0) g/dl Hct 31.7 L (37.0-47.0) % Plt Count 219 (160-400) X10*3/uL BMP 08/12/23 17:47 Sodium 136 Potassium 4.4 Chloride 100 Carbon Dioxide 31 H BUN 23 H Creatinine 1.13 Calcium 9.2 Liver Function 08/12/23 Range/Units 17:47 Total Bilirubin 0.5 (0.0-1.0) mg/dL Direct Bilirubin 0.2 (0.0-0.5) mg/dL AST 19 (5-31) U/L ALT 13 (0-31) U/L Alkaline Phosphatase 56 (39-117) U/L Albumin 3.8 (3.5-5.0) g/dL Noncontrast head CT revealed [id number] diffuse atrophy. No significant vascular stenosis was noted. Assessment and Plan (1) Dizziness: Status: Acute 83 years old woman with episodic dizziness which could be benign paroxysmal positional vertigo type or related to [id number] blood pressure resulting in hypertensive encephalopathy. For now, I recommend treating her blood pressure and educating her to take her medicines were regular basis. Procedures Date of Service Date of Service: 08/13/23
--- NOTE | 2023-08-13 15:59 | PC.NURSE ---
Patients IV in left AC infiltrated with IVF infusing. IV removed and replaced. MD James notified. Arm elevated on pillows.
--- NOTE | 2023-08-13 16:02 | PC.NURSE ---
Patients blood pressure elevated to 170s systolic. MD James notified. IVF discontinued.
--- NOTE | 2023-08-13 16:20 | PC.NURSE ---
Pt to MRi from ED overflow.
[2023-08-13] MEDS: hydrALAZINE HCl 20 MG/ML VIAL 5 MG IVPUSH (18:28)
[2023-08-13] MEDS: Meclizine HCl 12.5 MG TABLET PO (20:42)
[2023-08-13] MEDS: NIFEdipine ER 30 MG TAB.ER.24 PO (20:42)
[2023-08-13] MEDS: 0.9 % Sodium Chloride Flush 3 ML SYRINGE IVFLUSH (20:43)
[2023-08-13] MEDS: carvediloL 12.5 MG TABLET PO (20:43)
[2023-08-13] MEDS: Atorvastatin Calcium 10 MG TABLET PO (20:43)
[2023-08-14 02:57] VITALS: BP 159/71; PULSE 74; RESP 16; TEMP 36.3; O2SAT 93
[2023-08-14] MEDS: Levothyroxine Sodium 25 MCG TABLET PO (05:54)
[2023-08-14] MEDS: Omeprazole 20 MG CAPSULE.DR PO (05:54)
--- NOTE | 2023-08-14 06:37 | PC.NURSE ---
Assisted pt to the commode around 0600, noted urine to be very cloudy and foul smelling, Dr. Mejía was made aware.
[2023-08-14 07:36] VITALS: BP 157/71; PULSE 73; RESP 12; TEMP 36.3; O2SAT 94
[2023-08-14 08:38] VITALS: BP 144/60
--- NOTE | 2023-08-14 08:51 | P.DS_ITS ---
DS: Providers Provider Date of Service: 08/14/23 Date of admission: 08/13/23 06:22 Primary care physician: Unknown Physician Consults: 08/13/23 09:06 Consult to Neurology Routine Consulting Provider: [facility] Reason for consultation: Dizziness, concern for stroke DS: Diagnosis Discharge Diagnosis (1) Dizziness: Status: Acute DS: Summary Hospital Course Hospital Course: admissin hpi Chief Complaint: Dizziness Haven Chaidez is 83 years old woman with past medical history significant for essential hypertension, hyperlipidemia, depression, CKD stage 3A, COPD, chronic anemia on erythropoietin injections and hypothyroidism presents to the emergency department complaining of 2 day history of dizziness (vertigo-like) associated with multiple episodes of nonbloody bilious vomiting and loss of balance. Dizziness occurs with position changes. She denied any associated headache, acute visual disturbances such as double vision or blurry vision, focal weakness or speech difficulty. Loss of consciousness or seizure activity has not been reported. Patient denied any acute cardiopulmonary symptoms such as chest pain, shortness on breath, palpitations or dizziness. She also denies abdominal pain, diarrhea, fever, chills or cough. She did not report any acute urinary symptoms. Patient is visiting her family from [facility]. She denied alcohol abuse. She is a former tobacco smoker -smoked for many years. Illicit drug use was not reported. She does not have history of strokes, coronary artery disease, diabetes mellitus or heart failure. In the ED, she was found have back elevated blood pressure (max 208/127). There is no tachycardia, hypoxia or fever. Blood workup is remarkable for mild degree of anemia (Hbg 10.6) which is around her baseline. WBC count, platelets INR and normal. CO2 was noted to be elevated, 31. Creatinine is 1.13 (her baseline is 1.4, according to her paperwork). LFTs, albumin and lipase are normal. Troponi n is flat x2. His CTA showed no acute intracranial abnormalities, no acute arterial occlusion or hemodynamically significant stenosis within the head or neck, possible lingual tonsillar hypertrophy and biapical pleural-parenchymal scarring with some areas which appear more masslike with spiculated margins. ECG showed normal sinus rhythm with a heart rate of 69 beats per minute without ischemic changes. ED tx: Labetalol 20 mg IV X2, IV contrast. hospital course: The patient presented with dizziness and was found to have elevated systolic blood pressure, peaking at 200 mmHg. A CTA of the head and neck ruled out acute stroke. She was treated with IV Labetalol, which successfully reduced her blood pressure. She continued her home blood pressure medications, including Losartan/HCTZ 50/12.5 mg daily, Nifedipine 30 mg at bedtime, and Coreg 25 mg at bedtime. A neurologist recommended better blood pressure control. An MRI of the head showed no acute findings. Her symptoms have improved, and her blood pressure is much better. The dosage of Coreg was adjusted to 12.5 mg twice daily instead of 25 mg at bedtime and additional 12.5 mg of HCTZ is prescribed and explained to patient and family at bedside with cnc manufacturing engineer Time Attestation Discharge Coordination Time (in mins): 35 Quality: Safe Use of Opioids Does Pt have an Active Cancer Diagnosis on the Problem List?: No Quality: Stroke Does the patient have a stroke diagnosis?: No Physical Exam Vital Signs: Vital Signs: Last Vital Signs Temp 97.4 F 08/14/23 07:36 Pulse 73 08/14/23 07:36 Resp 12 08/14/23 07:36 BP 144/60 H 08/14/23 08:38 Pulse Ox 94 08/14/23 07:36 O2 Del Method Room Air 08/14/23 07:36 BMI result Body Mass Index 28.2 General: AO X 3, no acute distress Resp: CTA bilateral CVS: S1,S2,RRR GI: +BS, NT, no distention Skin: No rash Neuro: motor grossly intact Psych: appropriate affect DS: Data Data Completed and Pending Labs on day of discharge: Laboratory Results - last 24 hr 08/13/23 09:39 VBG pH 7.47 H VBG pCO2 40 VBG pO2 147 VBG HCO3 30 H VBG O2 Saturation 99.0 VBG Base Excess 6.1 Discharge Plan Discharge Anticipated Discharge Date/Time: 08/14/23 08:46 Patient Disposition: Home, Self-Care Discharge Diagnosis: Accelerated hypertension Referrals: Physician,Unknown J [Primary Care Provider] - 1 Week Discharge Medications: New carvedilol 12.5 mg Tablet 12.5 mg PO BID Qty: 60 0RF Protocol: Hold for SBP/HR < HOLD for SBP < : 90 HOLD for HR < : 60 hydrochlorothiazide 12.5 mg tablet 12.5 mg PO DAILY Qty: 30 0RF Continued nifedipine 30 mg Tablet Extended Release 24hr 30 mg PO BEDTIME epoetin gokul 2,000 unit/mL Solution 2,000 unit SUBCUT 3XW losartan-hydrochlorothiazide 50-12.5 mg Tablet 1 tab PO DAILY@0800 Rx Instructions: With Breakfast cyanocobalamin (vitamin B-12) 1,000 mcg/mL Solution 1,000 mcg IM QMONTH aspirin 81 mg Capsule 100 mg PO TUTHSA Rx Instructions: medication is from [facility] aspirin 100mg; Takes on Tuesdays, and Saturdays. atorvastatin 10 mg Tablet 10 mg PO BEDTIME levothyroxine 25 mcg Tablet 25 mcg PO DAILY@0600 Rx Instructions: Before Meals lansoprazole 15 mg Capsule,Delayed Release(Dr/Ec) 15 mg PO BEDTIME escitalopram oxalate 10 mg Tablet 10 mg PO DAILY Discontinued carvedilol 25 mg Tablet 25 mg PO BEDTIME Rx Instructions: must administer with a meal/food Discharge Orders: Discharge Order (Routine); Ordered 08/14/23 Ordered By: Enzo James Diet: Advance to usual diet Activity on Discharge: As tolerated Stand Alone Forms: Patient Portal Discharge page Print Language: Cymro Care Plan Goals: Control of blood pressure and prevent complications associated with high blood pressure Health Concerns: Uncontrolled high blood pressures Dizziness Plan of Treatment: Take your blood pressure medication as directed and follow up with your Doctor in a week, call for appointment Carvedilol dose has been changed from 25 mg at bedtime to 12.5 mg twice daily (you may split you present pill in half and take one in the morning and one in the evening) Hydrocholothiaszed 12.5 mg is added to better control your blood pressure. you need to follow up with your doctor as soon as you return to your [facility] on Wednesday Assessment: see above Discharge Date/Time: 08/14/23 11:27
[2023-08-14 09:33] VITALS: BP 144/60
[2023-08-14] MEDS: hydroCHLOROthiazide 12.5 MG TABLET PO (09:33)
[2023-08-14] MEDS: 0.9 % Sodium Chloride Flush 3 ML SYRINGE IVFLUSH (09:33)
[2023-08-14] MEDS: Meclizine HCl 12.5 MG TABLET PO (09:33)
[2023-08-14] MEDS: Escitalopram Oxalate 10 MG TABLET PO (09:34)
[2023-08-14] MEDS: Aspirin Enteric Coated 81 MG TABLET.DR PO (09:34)
[2023-08-14 09:35] VITALS: BP 144/60; PULSE 73
[2023-08-14] MEDS: carvediloL 12.5 MG TABLET PO (09:35)
--- NOTE | 2023-08-14 10:42 | MHC.CM.PN ---
pt dcd home self care,pt was visitng and will return to her home in [facility]
== END 2023-08-14 11:27 | disposition home or self-care (01) ==
LOC: HO.ED 08-13 00:53 → HO.EDOVER 08-13 06:31 → HO.S3 08-13 15:24
PROVIDERS: Physician Assistant Medical; Admitting Provider Internal Medicine; Emergency Provider Internal Medicine; Visit Provider Internal Medicine
DX: I16.0 Hypertensive urgency (principal); I12.9 Hypertensive chronic kidney disease with stage 1 through stage 4 chronic kidney disease, or unspecified chronic kidney disease; N18.31 Chronic kidney disease, stage 3a; E53.8 Deficiency of other specified B group vitamins; R42 Dizziness and giddiness; E78.5 Hyperlipidemia, unspecified; R93.0 Abnormal findings on diagnostic imaging of skull and head, not elsewhere classified; R26.81 Unsteadiness on feet; R11.2 Nausea with vomiting, unspecified; D64.9 Anemia, unspecified; R11.10 Vomiting, unspecified; E03.9 Hypothyroidism, unspecified; K21.9 Gastro-esophageal reflux disease without esophagitis; F32.A Depression, unspecified; Z79.899 Other long term (current) drug therapy
CPT/HCPCS: 36415; 70496; 70498; 70551; 80048; 80076; 82803; 83690; 84484; 85025; 85610; 86850; 86900; 86901; 93005; 96361; 96374; 96375; 96376; 97162; 99221; 99285; J0360; J1920; Q9967

== ENCOUNTER → 2023-08-12 17:36 | Outpatient (BNV) | payer SELFPAY | PROVIDERS: Admitting Provider Internal Medicine; Emergency Provider Internal Medicine; Visit Provider Internal Medicine | DX: I16.0 Hypertensive urgency (principal) | CPT/HCPCS: 93010 ==

== ENCOUNTER → 2023-08-13 06:22 | Outpatient (BNV) | payer SELFPAY | PROVIDERS: Admitting Provider Internal Medicine; Emergency Provider Internal Medicine; Visit Provider Internal Medicine | DX: R42 Dizziness and giddiness (principal) | CPT/HCPCS: 99223; 99239; 99499 ==

== ENCOUNTER → 2023-08-13 06:22 | Outpatient (BNV) | payer SELFPAY | PROVIDERS: Admitting Provider Internal Medicine; Emergency Provider Internal Medicine; Visit Provider Psychiatry & Neurology Neurology | DX: R42 Dizziness and giddiness (principal) | CPT/HCPCS: 99222 ==